=== PATIENT | female | born 1955 ===

== ENCOUNTER → 2025-04-21 07:49 | Outpatient (BNVA) | payer MEDICARE, SELFPAY | PROVIDERS: Visit Provider Orthopaedic Surgery | DX: M48.061 Spinal stenosis, lumbar region without neurogenic claudication (principal); M50.322 Other cervical disc degeneration at C5-C6 level; M43.16 Spondylolisthesis, lumbar region | CPT/HCPCS: 72050; 72110; 99203 ==

== ENCOUNTER 2025-04-29 06:55 | Outpatient (CLI) | payer MEDICARE, OTHER, SELFPAY ==
--- NOTE | 2025-04-29 07:15 | MR_ITS ---
WS: [id number] MRI LUMBAR SPINE NONCONTRAST HISTORY: Degenerative disc disease, back pain for 20 years. No injury. COMPARISON: Radiographs 04/21/2025 TECHNIQUE: Sagittal and axial multisequence imaging is submitted. 5 lumbar-type vertebral bodies with S1 being lumbarized. This pattern was confirmed numbering from the upper cervical spine. Also prior CT from 01/05/2025 determined the nonrib-bearing vertebral bodies. This numbering pattern will be important if surgery is contemplated in this patient. Degenerative disc disease and osteophytosis cervical spine. Disc protrusion at C5-6 contacts the ventral cervical cord. Thoracic scoliosis with disc narrowing. L4 anterolisthesis by 5 mm. No acute fractures or marrow edema. Mild curvature or scoliosis. Increased lumbar lordosis. Disc spaces are narrowed and desiccated throughout the lumbar spine. Conus terminates normally at L1-2 disc level. L1-L2: Normal. L2-L3: Bilateral facet joint arthritis. No stenosis. L3-L4: Ligamentum flavum and facet arthritis. No stenosis. L4-L5: Mild anterolisthesis of L4. Annular disc bulging with ligamentum flavum and marked facet arthritis. There is encroachment upon the thecal sac. Shallow bilateral disc protrusions. Mild to moderate central and mild subarticular recess and foraminal stenosis. L5-S1: Annular disc bulging asymmetric to the RIGHT. Very slight contact on the RIGHT S1 nerve root. No high-grade central or foraminal stenosis. Moderate facet arthritis. Rudimentary disc at S1-S2. Partially visualized LEFT renal cyst. MR/MR lumbar spine wo con* [id number] IMPRESSION: 1. Degenerative disc disease and facet arthritis throughout the lumbar spine. 2. S1 is partially lumbarized. 3. Asymmetric annular disc bulging at L5-S1 greatest to the RIGHT. Mild disc c ontact on the RIGHT S1 nerve root. 4. Mild to moderate central with mild subarticular recess and foraminal stenos is at L4-5. 5. Grade 1 anterolisthesis of L4. 6. Disc protrusion at C5-6 contacts the ventral cervical cord.
== END 2025-04-29 06:56 | disposition home or self-care (01) ==
LOC: RAD 06:58
PROVIDERS: PCP Nurse Practitioner Family; Visit Provider Orthopaedic Surgery
DX: M48.061 Spinal stenosis, lumbar region without neurogenic claudication (principal); M51.369 Other intervertebral disc degeneration, lumbar region without mention of lumbar back pain or lower extremity pain; R93.7 Abnormal findings on diagnostic imaging of other parts of musculoskeletal system; M47.896 Other spondylosis, lumbar region; M51.379 Other intervertebral disc degeneration, lumbosacral region without mention of lumbar back pain or lower extremity pain; M43.16 Spondylolisthesis, lumbar region; M50.222 Other cervical disc displacement at C5-C6 level; M25.78 Osteophyte, vertebrae; M41.84 Other forms of scoliosis, thoracic region; M24.28 Disorder of ligament, vertebrae; M47.897 Other spondylosis, lumbosacral region; N28.1 Cyst of kidney, acquired
CPT/HCPCS: 72148

== ENCOUNTER → 2025-06-09 07:51 | Outpatient (BNVA) | payer MEDICARE, OTHER, SELFPAY | PROVIDERS: PCP Nurse Practitioner Family; Visit Provider Orthopaedic Surgery | DX: M54.12 Radiculopathy, cervical region (principal); M48.02 Spinal stenosis, cervical region; M50.322 Other cervical disc degeneration at C5-C6 level; M43.16 Spondylolisthesis, lumbar region | CPT/HCPCS: 99214 ==